=== PATIENT | male | born 2000 | race Caucasian/White ===

== ENCOUNTER 2020-06-30 19:31 | Emergency (ER) | payer OTHER, SELFPAY ==
[2020-06-30 22:19] LABS: SARS-COV-2 RT PCR NEGATIVE (NEGATIVE)
--- NOTE | 2020-06-30 22:37 | EDPHYS ---
Physician Documentation [facility] Name: Kev Rosario Age: 20 yrs Sex: Male : 2000 Arrival Date: 06/30/2020 Time: 19:49 Bed 2 Private MD: ED Physician Chuck Moy HPI: 06/30 22:35 This 20 yrs old Male presents to ER via Ambulatory with complaints of kb Dizziness, Cough. 22:35 The patient or guardian reports cough, difficulty breathing, flu symptoms, arthralgias, kb low-grade fever, myalgias. Onset: The symptoms/episode began/occurred 2 day(s) ago. Severity of symptoms: At their worst the symptoms were mild, moderate, in the emergency department the symptoms are unchanged. Modifying factors: The symptoms are alleviated by nothing, the symptoms are aggravated by nothing. Associated signs and symptoms: Pertinent positives: fever, rhinorrhea. The patient has not experienced similar symptoms in the past. The patient has not recently seen a physician. Historical: - Allergies: 19:52 No Known Allergies; ll1 - PMHx: 19:52 None; ll1 - PSHx: 19:52 Tonsillectomy; ll1 - Immunization history:: Flu vaccine is not up to date. - Social history:: Smoking status: Patient denies any tobacco usage or history of. ROS: 22:34 Cardiovascular: Negative for chest pain, palpitations, and edema, Abdomen/GI: Negative kb for abdominal pain, nausea, vomiting, diarrhea, and constipation, MS/Extremity: Negative for injury and deformity, Skin: Negative for injury, rash, and discoloration. 22:34 Constitutional: Positive for body aches, chills, fatigue, fever, malaise. 22:34 ENT: Positive for rhinorrhea, sinus congestion. 22:34 Respiratory: Positive for cough, shortness of breath. 22:34 Neuro: Positive for headache. Exam: 22:34 Constitutional: This is a well developed, well nourished patient who is awake, alert, kb and in no acute distress. Head/Face: Normocephalic, atraumatic. Chest/axilla: Normal chest wall appearance and motion. Nontender with no deformity. No lesions are appreciated. Cardiovascular: Regular rate and rhythm with a normal S1 and S2. No gallops, murmurs, or rubs. Normal PMI, no JVD. No pulse deficits. Respiratory: Lungs have equal breath sounds bilaterally, clear to auscultation and percussion. No rales, rhonchi or wheezes noted. No increased work of breathing, no retractions or nasal flaring. Abdomen/GI: Soft, non-tender, with normal bowel sounds. No distension or tympany. No guarding or rebound. No evidence of tenderness throughout. Skin: Warm, dry with normal turgor. Normal color with no rashes, no lesions, and no evidence of cellulitis. MS/ Extremity: Pulses equal, no cyanosis. Neurovascular intact. Full, normal range of motion. Neuro: Awake and alert, GCS 15, oriented to person, place, time, and situation. Cranial nerves II-XII grossly intact. Motor strength 5/5 in all extremities. Sensory grossly intact. Cerebellar exam normal. Normal gait. Vital Signs: 19:52 BP 137 / 72; Pulse 88; Resp 17; Temp 99.5; Pulse Ox 100% ; Weight 77.11 kg; Height 5 ll1 ft. 7 in. (170.18 cm); Pain 5/10; 19:52 Body Mass Index 26.63 (77.11 kg, 170.18 cm) ll1 MDM: 22:08 Patient medically screened. kb 22:35 Data reviewed: vital signs, nurses notes. Data interpreted: Pulse oximetry: on room air kb is 100 %. Interpretation: normal. Counseling: I had a detailed discussion with the patient and/or guardian regarding: the historical points, exam findings, and any diagnostic results supporting the discharge/admit diagnosis, lab results, the need for outpatient follow up, a family practitioner, to return to the emergency department if symptoms worsen or persist or if there are any questions or concerns that arise at home. 06/30 20:04 Order name: Flu kb 06/30 22:19 Order name: COVID-19/FLU A+B; Complete Time: 22:25 EDMS Administered Medications: No medications were administered Disposition: 06/30/20 22:36 Discharged to Home. Impression: Acute upper respiratory infection, unspecified. - Condition is Stable. - Discharge Instructions: Upper Respiratory Infection, Adult, [id number], Viral Respiratory Infection, [id number]. - Prescriptions for Albuterol Sulfate 90 mcg/actuation - inhale 1-2 puff by INHALATION route every 4-6 hours; 1 Inhaler. - Medication Reconciliation Form, Thank You Letter, Antibiotic Education, Prescription Opioid Use form. - Follow up: Emergency Department; When: As needed; Reason: Worsening of condition. Follow up: Private Physician; When: 2 - 3 days; Reason: Recheck today's complaints, Continuance of care, Re-evaluation by your physician. Addendum: 07/04/2020 19:03 Co-signature as Attending Physician, Chuck donovan Signatures: Dispatcher [employer] EDNV Maria Fernanda Willis, IN HOME NANNY-C IN HOME NANNY-Ckb Chuck Moy MD MD pkl Gilberto Luna, RN RN mg2 Mumtaz King RN RN ll1 Corrections: (The following items were deleted from the chart) 06/30 21:14 20:05 Influenza Screen (A ordered. EDNV EDMS 21:14 20:05 CORONAVIRUS+MR.LAB.BRZ ordered. [facility] EDNV 22:45 22:36 06/30/2020 22:36 Discharged to Home. Impression: Acute upper respiratory mg2 infection, unspecified. Condition is Stable. Forms are Medication Reconciliation Form, Thank You Letter, Antibiotic Education, Prescription Opioid Use. Follow up: Emergency Department; When: As needed; Reason: Worsening of condition. Follow up: Private Physician; When: 2 - 3 days; Reason: Recheck today's complaints, Continuance of care, Re-evaluation by your physician. kb
--- NOTE | 2020-06-30 22:37 | ER ---
Nurse's Notes [facility] Name: Kev Rosario Age: 20 yrs Sex: Male : 2000 Arrival Date: 06/30/2020 Time: 19:49 Bed 2 Private MD: Diagnosis: Acute upper respiratory infection, unspecified Presentation: 06/30 19:52 Chief complaint: Patient states: Cough, DWYER, weak for 3 days. Wants a covid test. fever ll1 100.2 at home. Coronavirus screen: Client denies travel out of the [place] in the last 14 days. congestion, cough unrelated to allergies, difficulty breathing, fatigue, fever, headache, muscle pain, nausea, runny nose, shortness of breath, sore throat, Client presents with at least one sign or symptom that may indicate coronavirus-19. Standard/surgical mask placed on the client. Ebola Screen: Patient denies travel to an Ebola-affected area in the 21 days before illness onset. Initial Sepsis Screen: Does the patient meet any 2 criteria? No. Patient's initial sepsis screen is negative. Does the patient have a suspected source of infection? Yes: Productive cough/pneumonia. Risk Assessment: Do you want to hurt yourself or someone else? Patient reports no desire to harm self or others. Onset of symptoms was June 28, 2020. 19:52 Method Of Arrival: Ambulatory ll1 19:52 Acuity: PRABHAKAR 4 ll1 Historical: - Allergies: 19:52 No Known Allergies; ll1 - PMHx: 19:52 None; ll1 - PSHx: 19:52 Tonsillectomy; ll1 - Immunization history:: Flu vaccine is not up to date. - Social history:: Smoking status: Patient denies any tobacco usage or history of. Screenin:45 Abuse screen: Denies threats or abuse. Denies injuries from another. Nutritional mg2 screening: No deficits noted. Tuberculosis screening: No symptoms or risk factors identified. Fall Risk No IV (0 pts). Assessment: 22:20 General: Appears in no apparent distress. comfortable, Behavior is calm, cooperative. mg2 Pain: Denies pain. Neuro: Level of Consciousness is awake, alert, obeys commands, Oriented to person, place, time, situation. Cardiovascular: Capillary refill < 3 seconds Patient's skin is warm and dry. Respiratory: Airway is patent Respiratory effort is even, unlabored, Respiratory pattern is regular, symmetrical. Respiratory: Reports cough that is. GI: No signs and/or symptoms were reported involving the gastrointestinal system. : No signs and/or symptoms were reported regarding the genitourinary system. EENT: No signs and/or symptoms were reported regarding the EENT system. Derm: Skin is intact, is healthy with good turgor, Skin is pink, warm \T\ dry. normal. Musculoskeletal: Circulation, motion, and sensation intact. Capillary refill < 3 seconds. Vital Signs: 19:52 BP 137 / 72; Pulse 88; Resp 17; Temp 99.5; Pulse Ox 100% ; Weight 77.11 kg; Height 5 ll1 ft. 7 in. (170.18 cm); Pain 5/10; 19:52 Body Mass Index 26.63 (77.11 kg, 170.18 cm) ll1 ED Course: 19:49 Patient arrived in ED. cl3 19:52 Arm band placed on. ll1 19:55 Triage completed. ll1 20:04 Maria Fernanda Willis FNP-C is [facility]. kb 20:04 Chuck Moy MD is Attending Physician. kb 22:35 Angel Garcia, RN is Primary Nurse. rr5 22:45 Patient has correct armband on for positive identification. mg2 22:45 No provider procedures requiring assistance completed. Patient did not have IV access mg2 during this emergency room visit. Administered Medications: No medications were administered Outcome: 22:36 Discharge ordered by MD. kb 22:45 Discharged to home ambulatory. mg2 22:45 Condition: stable 22:45 Discharge instructions given to patient, Instructed on discharge instructions, follow up and referral plans. medication usage, Demonstrated understanding of instructions, follow-up care, medications, Prescriptions given X 1. 22:45 Patient left the ED. mg2 Signatures: Maria Fernanda Willis FNP-C FNP-Ckb Gardose, Michele, RN RN mg2 Angel Garcia, TEDDY RN rr5 Juan David King cl3 Mumtaz King RN RN ll1
[2020-07-01 00:21] VITALS: BP 137/72; TEMP 99.5; O2SAT 100
== END 2020-06-30 22:45 | disposition home or self-care (01) ==
LOC: ER 19:31
DX: J06.9 Acute upper respiratory infection, unspecified (principal); Z20.822 Contact with and (suspected) exposure to COVID-19
CPT/HCPCS: 0240U; 99282

== ENCOUNTER 2025-03-11 13:41 | Emergency (ER) | payer OTHER ==
[2025-03-11 15:30] LABS: Absolute Lymphocytes (CBC) 1.7 K/uL (0.7-4.9); Hematocrit 46.7 % (39.6-49.0); Hemoglobin 15.7 g/dL (13.6-17.9); MCH 28.6 pg (27.0-35.0); MCHC 33.6 g/dL (32.0-36.0); MCV 85.0 fL (80-100); MPV 8.6 fL (7.6-11.3); Nucleated RBC Absolute Count 0.0 (0-0); Nucleated Red Blood Cells % 0.0 % (0-0); RBC Red Blood Cell Count 5.50 M/uL (4.33-5.43); White Blood Count 6.30 thou/uL (4.3-10.9)
[2025-03-11 16:01] LABS: ALT/SGPT 73.0 U/L (16-61); AST/SGOT 19.0 U/L (15-37); Albumin 4.7 g/dL (3.4-5.0); Albumin/Globulin Ratio 1.4 (1.1-1.8); Alkaline Phosphatase 73.0 U/L (45-117); Anion Gap 8.9 mEq/L (5.0-15.0); BUN Blood Urea Nitrogen 15.0 mg/dL (7-18); Globulin 3.4 g/dL (2.3-3.5); Glucose Level 98.0 mg/dL (74-106); Lipase 29.0 U/L (13-75); Potassium 3.9 mEq/L (3.5-5.1)
--- NOTE | 2025-03-11 18:04 | RAD REPORT ---
EXAMINATION: Abdomen Pelvis W Contrast CLINICAL INDICATION: Male, 24 years old.ABD PAIN TECHNIQUE: CT abdomen and pelvis was performed, after the administration of IV contrast, as per depar count [facility]. Axial, sagittal and coronal reconstructions were obtained. One or more of the following dose reduction techniques were used: Automated exposure control, adjustment of the mA and/o r kV according to patient size, and/or iterative reconstruction. Unless otherwise specified, incidental findings do not require dedicated imaging follow-up. [id number]. COMPARISON: 11/02/2015 FINDINGS: LOWER CHEST: No acute process identified.No significant pericardial effusion. UPPER GI: No significant abnormality. LIVER: Hepatic steatosis, but otherwise unremarkable. GALLBLADDER/BILE DUCTS: No biliary ductal dilatation.? PANCREAS: No mass, ductal dilation, or haylie-pancreatic fluid. SPLEEN: Unremarkable. ADRENALS: No adrenal masses. KIDNEYS AND URETERS: No hydronephrosis.No suspicious renal mass. ABDOMINAL AORTA AND OTHER VESSELS: Normal caliber aorta and IVC. PERITONEUM: Nonspecific free fluid. Ovoid calcified structure in the pelvis adjacent to the free flui d. See image 74, series 201. This could reflect epiploic appendicitis. LYMPH NODES: No pathologic lymphadenopathy. ABDOMINAL WALL: Small fat containing umbilical hernia. SMALL BOWEL/COLON: Small bowel has normal course and caliber. No colonic wall thickening or pericolon ic inflammatory changes.Normal appendix. URINARY BLADDER: Underdistended but grossly unremarkable. REPRODUCTIVE ORGANS: No pathologic process. MUSCULOSKELETAL: No acute or suspicious osseous abnormality. ADDITIONAL FINDINGS: None. IMPRESSION: Small volume of nonspecific but abnormal pelvic free fluid. Small fatty encapsulated structure locate d in the deep pelvis adjacent to the sigmoid colon likely reflecting age-indeterminate though possibly acute epiploic appendicitis. Normal appendix. No other acute findings identified.
--- NOTE | 2025-03-11 18:23 | ER ---
Nurse's Notes [facility] Name: Kev Rosario Age: 24 yrs Sex: Male : 2000 Arrival Date: 03/11/2025 Time: 13:41 Bed 24 Private MD: Diagnosis: Lower abdominal pain, unspecified Presentation: 03/11 13:48 Chief complaint: Patient states: LT/RT LOWER STOMACH PAIN X1 WEEK. PT REPORTS PAIN HAS dd2 BECOME WORSE, PRESSURE IN THE STOMACH. PT DENIES N/V. Coronavirus screen: At this time, the client does not indicate any symptoms associated with coronavirus-19. Ebola Screen: No symptoms or risks identified at this time. Initial Sepsis Screen: Does the patient meet any 2 criteria? No. Patient's initial sepsis screen is negative. Does the patient have a suspected source of infection? No. Patient's initial sepsis screen is negative. Risk Assessment: Do you want to hurt yourself or someone else? Patient reports no desire to harm self or others. Onset of symptoms was March 04, 2025. 13:48 Method Of Arrival: Ambulatory dd2 13:48 Acuity: PRABHAKAR 3 dd2 Triage Assessment: 13:50 General: Appears in no apparent distress. uncomfortable, Behavior is calm, cooperative, dd2 appropriate for age. Pain: Complains of pain in right lower quadrant and left lower quadrant Pain currently is 4 out of 10 on a pain scale. GI: Abdomen is non-distended, Abd is soft X 4 quads Abdomen is tender to palpation in right lower quadrant and left lower quadrant Reports lower abdominal pain, cramping. Historical: - Allergies: 13:50 No Known Allergies; dd2 - PMHx: 13:50 None; dd2 - PSHx: 13:50 Tonsillectomy; dd2 - Immunization history:: Adult Immunizations up to date. - Infectious Disease History:: Denies. - Social history:: Smoking status: Reported history of juuling and/or vaping. Screenin:28 [facility] ED Fall Risk Assessment (Adult) History of falling in the last 3 months, jb4 including since admission No falls in past 3 months (0 pts) Confusion or Disorientation No (0 pts) Intoxicated or Sedated No (0 pts) Impaired Gait No (0 pts) Mobility Assist Device Used No (0 pt) Altered Elimination No (0 pt) Score/Fall Risk Level 0 - 2 = Low Risk Oriented to surroundings, Maintained a safe environment. Abuse screen: Denies threats or abuse. Nutritional screening: No deficits noted. Tuberculosis screening: No symptoms or risk factors identified. Assessment: 15:28 General: Appears in no apparent distress. comfortable, Behavior is calm, cooperative. jb4 Pain: Complains of pain in suprapubic area Pain radiates to abdomen, rectum. Neuro: Level of Consciousness is awake, alert, obeys commands, Oriented to person, place, time, situation. Cardiovascular: Patient's skin is warm and dry. Respiratory: Airway is patent Respiratory effort is even, unlabored, Respiratory pattern is regular, symmetrical. GI: Abdomen is flat, non-distended, Abd is soft and non tender X 4 quads. Abdomen is tender to palpation. : pt reports pelvic tenderness. Derm: Skin is intact, Skin is pink, warm \T\ dry. Musculoskeletal: Circulation, motion, and sensation intact. Range of motion: intact in all extremities. 17:10 Reassessment: Patient appears in no apparent distress at this time. Patient and/or jb4 family updated on plan of care and expected duration. Pain level reassessed. Patient is alert, oriented x 3, equal unlabored respirations, skin warm/dry/pink. 18:46 Reassessment: Patient appears in no apparent distress at this time. Patient and/or jb4 family updated on plan of care and expected duration. Pain level reassessed. Patient is alert, oriented x 3, equal unlabored respirations, skin warm/dry/pink. Vital Signs: 13:48 BP 159 / 77; Pulse 76; Resp 16; Temp 97.8; Pulse Ox 100% on R/A; Weight 95.25 kg; dd2 Height 5 ft. 7 in. ; Pain 4/10; 15:28 BP 128 / 90; Pulse 66; Resp 16; Pulse Ox 99% on R/A; jb4 17:10 BP 142 / 77; Pulse 67; Resp 16; Pulse Ox 99% on R/A; jb4 13:48 Body Mass Index 32.89 (95.25 kg, 170.18 cm) dd2 13:48 Pain Scale: Adult dd2 ED Course: 13:43 Patient arrived in ED. im 13:45 Yelena Dahl MD is Attending Physician. gb1 13:50 Triage completed. dd2 13:50 Arm band placed on right wrist. dd2 15:06 Inserted saline lock: 18 gauge in right antecubital area, using aseptic technique. jb4 Blood collected. 15:27 CBC with Diff Sent. jb4 15:27 CMP Sent. jb4 15:28 Patient has correct armband on for positive identification. Bed in low position. Call jb4 light in reach. Side rails up X 1. Provided Education on: plan of care. 15:28 Lipase Sent. jb4 15:28 No provider procedures requiring assistance completed. jb4 17:04 Santy Santiago, RN is Primary Nurse. jb4 17:52 CT Abd/Pelvis - IV Contrast Only In Process Unspecified. EDMS 18:47 IV discontinued, intact, bleeding controlled, No redness/swelling at site. Pressure jb4 dressing applied. Administered Medications: No medications were administered Medication: 15:28 VIS not applicable for this client. jb4 Outcome: 18:23 Discharge ordered by . gb1 18:47 Discharged to home ambulatory, jb4 18:47 Condition: stable 18:47 Discharge instructions given to patient, Instructed on discharge instructions, follow up and referral plans. no drinking with medication, medication usage, Demonstrated understanding of instructions, follow-up care, medications, Prescriptions given X 2, 18:47 Patient left the ED. jb4 Signatures: Dispatcher [employer] EDMS Santy Santiago, RN RN jb4 Sonia Handley Gina, MD MD gb1 MACIE FREY RN RN dd2
--- NOTE | 2025-03-11 18:23 | EDPHYS ---
Physician Documentation [facility] Name: Kev Rosario Age: 24 yrs Sex: Male : 2000 Arrival Date: 03/11/2025 Time: 13:41 Bed 24 Private MD: ED Physician Yelena Dahl HPI: 03/11 17:33 This 24 yrs old Male presents to ER via Ambulatory with complaints of gb1 Abdominal Pain. 17:33 24-year-old male with bilateral left and right pelvic pain when he bears down to cough gb1 or tries to have bowel movement the pain shoots into his rectum and it's very painful. He denies any penile discharge he denies any cough or recent illness he denies any chest pain or shortness of breath no fevers. He has had no diarrhea he seldom drinks alcohol and doesn't use any illicit drugs. He is otherwise healthy takes no medications. He denies any bloody stools or change in his stool habits he reports that he has been drinking more water and urinating more frequently at night. He denies any scrotal pain or swelling. He denies any anal intercourse.. Historical: - Allergies: 13:50 No Known Allergies; dd2 - PMHx: 13:50 None; dd2 - PSHx: 13:50 Tonsillectomy; dd2 - Immunization history:: Adult Immunizations up to date. - Infectious Disease History:: Denies. - Social history:: Smoking status: Reported history of juuling and/or vaping. Exam: 17:33 Constitutional: This is a well developed, well nourished patient who is awake, alert, gb1 and in no acute distress. Head/Face: Normocephalic, atraumatic. Eyes: Pupils equal round and reactive to light, extra-ocular motions intact. Lids and lashes normal. Conjunctiva and sclera are non-icteric and not injected. Cornea within normal limits. Periorbital areas with no swelling, redness, or edema. ENT: Nares patent. No nasal discharge, no septal abnormalities noted. Tympanic membranes are normal and external auditory canals are clear. Oropharynx with no redness, swelling, or masses, exudates, or evidence of obstruction, uvula midline. Mucous membranes moist. Neck: Trachea midline, no thyromegaly or masses palpated, and no cervical lymphadenopathy. Supple, full range of motion without nuchal rigidity, or vertebral point tenderness. No Meningismus. Chest/axilla: Normal chest wall appearance and motion. Nontender with no deformity. No lesions are appreciated. Cardiovascular: Regular rate and rhythm with a normal S1 and S2. No gallops, murmurs, or rubs. Normal PMI, no JVD. No pulse deficits. Respiratory: Lungs have equal breath sounds bilaterally, clear to auscultation and percussion. No rales, rhonchi or wheezes noted. No increased work of breathing, no retractions or nasal flaring. Abdomen/GI: Soft, non-tender, with normal bowel sounds. No distension or tympany. No guarding or rebound. No evidence of tenderness throughout. Back: No spinal tenderness. No costovertebral tenderness. Full range of motion. Skin: Warm, dry with normal turgor. Normal color with no rashes, no lesions, and no evidence of cellulitis. MS/ Extremity: Pulses equal, no cyanosis. Neurovascular intact. Full, normal range of motion. Neuro: Awake and alert, GCS 15, oriented to person, place, time, and situation. Cranial nerves II-XII grossly intact. Motor strength 5/5 in all extremities. Sensory grossly intact. Cerebellar exam normal. Normal gait. Vital Signs: 13:48 BP 159 / 77; Pulse 76; Resp 16; Temp 97.8; Pulse Ox 100% on R/A; Weight 95.25 kg; dd2 Height 5 ft. 7 in. ; Pain 4/10; 15:28 BP 128 / 90; Pulse 66; Resp 16; Pulse Ox 99% on R/A; jb4 17:10 BP 142 / 77; Pulse 67; Resp 16; Pulse Ox 99% on R/A; jb4 13:48 Body Mass Index 32.89 (95.25 kg, 170.18 cm) dd2 13:48 Pain Scale: Adult dd2 MDM: 13:52 Medical Screening Exam initiated gb1 18:24 Data reviewed: lab test result(s), radiologic studies, CT scan. ED course: 24 year old gb1 male with epiploic appendigitis, no appendicitis seen. Will rx augmentin and bentyl. No SOB or diverticulitis.. 03/11 14:54 Order name: CBC with Diff; Complete Time: 16:06 gb1 03/11 14:54 Order name: CMP; Complete Time: 16:06 [facility] 03/11 14:54 Order name: Lipase; Complete Time: 16:06 [facility] 03/11 16:44 Order name: CT Abd/Pelvis - IV Contrast Only; Complete Time: 18:26 [facility] 03/11 14:54 Order name: IV Saline Lock; Complete Time: 15:28 [facility] 03/11 14:54 Order name: Labs collected and sent; Complete Time: 15:28 gb1 Administered Medications: No medications were administered Disposition Summary: 03/11/25 18:23 Discharge Ordered Notes: Location: Home gb1 Condition: Stable gb1 Diagnosis - Lower abdominal pain, unspecified gb1 Followup: gb1 - With: Private Physician - When: - Reason: If symptoms return Discharge Instructions: - Discharge Summary Sheet gb1 - Abdominal Pain, Adult gb1 Forms: - Medication Reconciliation Form gb1 - Antibiotic Education gb1 - Prescription Opioid Use gb1 - Patient Portal Instructions gb1 - Leadership Thank You Letter gb1 Prescriptions: - Augmentin 875-125 mg Oral Tablet - take 1 tablet ORAL route every 12 hours for 10 days; 20 tablet; Refills: 0, gb1 Product Selection Permitted - dicyclomine 10 mg Oral capsule - take 1 capsule ORAL route 3 times per day; 30 capsule; Refills: 0, Product gb1 Selection Permitted Signatures: Dispatcher [employer] EDYelena Bar MD MD gb1 MACIE FREY RN RN dd2 Corrections: (The following items were deleted from the chart) 14:55 14:55 CBC+H.LAB.BRZ ordered. EDMS EDMS 14:55 14:55 COMPREHENSIVE METABOLIC PANEL+C.LAB.BRZ ordered. EDMS EDMS 14:55 14:55 LIPASE+C.LAB.BRZ ordered. EDMS EDMS
[2025-03-11 18:51] VITALS: TEMP 97.8
[2025-03-11 18:53] VITALS: O2SAT 99
[2025-03-11 18:54] VITALS: BP 142/77
== END 2025-03-11 18:47 | disposition home or self-care (01) ==
LOC: ER 13:41
DX: R10.32 Left lower quadrant pain (principal); R10.31 Right lower quadrant pain
CPT/HCPCS: 85025; 36415; 83690; 80053; 74177; 99284; Q9967